=== PATIENT | female | born 1975 | race Caucasian/White ===

== ENCOUNTER → 2017-03-22 | Outpatient (CLI) | payer BC | END | disposition home or self-care (01) | LOC: RAD.S 15:40 | DX: Z12.31 Encounter for screening mammogram for malignant neoplasm of breast (principal); N64.89 Other specified disorders of breast ==

== ENCOUNTER → 2017-03-29 | Outpatient (CLI) | payer BC | END | disposition home or self-care (01) | LOC: RAD.S 03-24 07:59 | DX: Z12.31 Encounter for screening mammogram for malignant neoplasm of breast (principal); N60.01 Solitary cyst of right breast; R92.1 Mammographic calcification found on diagnostic imaging of breast; N63 Unspecified lump in breast ==

== ENCOUNTER → 2017-04-05 | Outpatient (CLI) | payer BC | END | disposition home or self-care (01) | DX: N60.31 Fibrosclerosis of right breast (principal); N60.91 Unspecified benign mammary dysplasia of right breast ==